=== PATIENT | male | born 1995 | race African-American/Black ===

== ENCOUNTER 2024-03-26 21:32 | Emergency (ER) | payer BC, SELFPAY ==
[2024-03-26 21:37] VITALS: BP 170/90; PULSE 74; RESP 15; TEMP 36.8; O2SAT 100
--- NOTE | 2024-03-26 21:39 | ED.URI ---
HPI - URI/Sore Throat General Chief Complaint: Upper Respiratory Infection Stated Complaint: URI Time Seen by Provider: 03/26/24 21:39 Focused HPI: This is a 28 year old male that presents to the ER for cold symptoms present since this afternoon. Reports cough, congestion, sore throat. Denies fevers. GENERAL: Well-appearing, well-nourished, and in no acute distress. HEAD: Normocephalic, atraumatic. CHEST: Clear to auscultation. ?No respiratory distress. HEART: Regular rate and rhythm.? NEURO: ?Alert and oriented x3. Patient screened in triage and initial orders placed.? ?Additional care and disposition to be based upon?diagnostic testing and treatment. Review of Systems Review of Systems: CONSTITUTIONAL: Denies fever ENT: Reports congestion, sore throat RESPIRATORY: Reports cough GASTROINTESTINAL: Denies vomiting, or diarrhea. All systems reviewed & are unremarkable except as noted in HPI and below PMFSH Past Medical History Medical History (Updated 03/26/24 @ 23:31 by Ching Floyd PA-C) No active medical problems Social History Social History (Updated 03/26/24 @ 21:52 by Ching Floyd PA-C) Smoking status: Never smoker Exam Narrative: GENERAL: Well-appearing, well-nourished, and in no acute distress. HEAD: Normocephalic, atraumatic. EYES: EOMI. ENT: Nares clear, no rhinorrhea or epistaxis. Mucous membranes moist. Oropharynx without tonsillar hypertrophy exudate or other lesions. Bilateral TMs pearly valladares non-bulging NECK: Supple. No adenopathy or masses. CHEST: Clear to auscultation. No respiratory distress. No wheezes rales or rhonchi HEART: Regular rate and rhythm. No murmur heard. Normal peripheral pulses. EXTREMITIES: Normal range of motion. No edema. SKIN: Warm, dry, no rash. NEURO: No focal deficits. Alert and oriented x3. PSYCH: Normal mood and affect Course Course Emergency Course: Patient updated on his workup and agrees with plan of care Vital Signs Vital signs: Vital Signs Temperature 98.2 F 03/26/24 21:37 Pulse Rate 74 03/26/24 21:37 Respiratory Rate 15 03/26/24 21:37 Blood Pressure 170/90 H 03/26/24 21:37 Pulse Oximetry 100 03/26/24 21:37 Oxygen Delivery Room Air 03/26/24 21:37 Temperature 98.2 F 03/26/24 21:37 Pulse Rate 74 03/26/24 21:37 Respiratory Rate 15 03/26/24 21:37 Blood Pressure 170/90 H 03/26/24 21:37 Pulse Oximetry 100 03/26/24 21:37 Oxygen Delivery Room Air 03/26/24 21:37 MDM - URI/Sore Throat MDM Narrative Medical decision making narrative: Patient presents to the emergency department for cold symptoms present since this afternoon. He is afebrile and nontoxic appearing. Lungs are clear on exam. Oxygen saturation is normal on room air. Patient positive for COVID. He was instructed on continued symptomatic care a viral infection. He is to follow up with primary provider. He was given warnings to return to the ER Patient's blood pressure incidentally elevated. He is asymptomatic. Instructed to continue to monitor this and follow up with primary for this as well Differential Diagnosis Differential diagnosis: Likely upper respiratory infection, viral infection, bronchitis, influenza, pharyngitis and other (COVID) Lab Data Attestation: I reviewed the patient's lab results. Labs: Lab Results 03/26/24 Range/Units 21:43 Influenza A (RT-PCR) Negative (Negative) Influenza B (RT-PCR) Negative (Negative) RSV (RT-PCR) Negative (Negative) SARS-CoV-2 RNA (RT-PCR) Positive A (Negative) Group A Strep (PCR) Not detected (Negative) Critical Care Time Critical Care Time Critical Care Time: No Discharge Plan Discharge Clinical Impression: COVID-19 Patient Disposition: Home, Self-Care Condition: Stable Instructions: COVID-19 (Coronavirus Disease 2019) (ED), How to Recover from COVID-19 at Home (ED) Additional Instructions: Return to the emergency department for worsenin
[2024-03-26 22:14] LABS: Strep Group A RT-PCR NOT DETECTED (Negative)
[2024-03-26 23:21] LABS: Influenza A QL RT-PCR Negative (Negative); Influenza B QL RT-PCR Negative (Negative); RSV RNA, RT-PCR Negative (Negative); SARS-CoV-2 RNA PCR Positive (Negative)
[2024-03-26 23:41] VITALS: BP 149/107; PULSE 76; RESP 18; TEMP 37.3; O2SAT 99
== END 2024-03-27 00:08 | disposition home or self-care (01) ==
PROVIDERS: Emergency Medicine; Emergency Provider Physician Assistant
DX: U07.1 COVID-19 (principal)
CPT/HCPCS: 87637; 87651; 99283

== ENCOUNTER 2024-12-05 21:32 | Emergency (ER) | payer BC, SELFPAY ==
--- NOTE | ~2024-12-05 | CT_ITS ---
CT of the Abdomen and Pelvis: Indication: Abdominal pain Technique: 2.5 mm axial scans were obtained through the abdomen and pelvis following intravenous adm inistration of 100 cc of Omnipaque 350. Dose reduction technique was used on this scan by utilizing a utomated exposure control and iterative reconstruction technique. The dose-length product (DLP) was 1 205.37 mGy-cm. Findings: Scans through the lung bases are unremarkable. The liver, spleen, pancreas, gallbladder, adrenals and kidneys are within normal limits. No evidence of aortic aneurysm. No lymphadenopathy. No bowel obstruction or bowel wall thickening. There is focal epiploic appendagitis at the proximal s igmoid colon.. Images through the pelvis were performed. Urinary bladder unremarkable. No pelvic mass seen. No ascit es. Impression: Epiploic appendagitis at the proximal sigmoid colon. Reviewed, dictated and finalized at [facility]. Impression: Epiploic appendagitis at the proximal sigmoid colon.
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
--- OUTSIDE RECORDS SUMMARY | 2024-12-05 21:34 | XMS_ITS | Referral Summary ---
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 Gender Identity Not on file Sexual Orientation Not on file Last Filed Vital Signs Vital Sign Reading Time Taken Comments Blood Pressure 144/102 06/21/2024 10:30 AM METAL MOLD DRESSER Pulse 73 06/21/2024 10:30 AM METAL MOLD DRESSER Temperature 36.9 C (98.4 F) 06/21/2024 10:30 AM METAL MOLD DRESSER Respiratory Rate 16 09/08/2022 9:32 AM METAL MOLD DRESSER Oxygen Saturation 99% 06/21/2024 10: 30 AM METAL MOLD DRESSER Inhaled Oxygen Concentration - - Weight 120.2 kg (265 lb 1.6 oz) 024 10:30 AM METAL MOLD DRESSER Height 182.9 cm (6') 06/21/2024 10:30 AM METAL MOLD DRESSER Body Mass Index 35.95 06/21/2024 10:30 AM METAL MOLD DRESSER Plan of Treatment Not on file Insurance [employer] [place] [employer] [place] Care Teams Internet Systems Administrator Relationship Specialty Start Date End Date Toan Roper MD PCP - General 07/22/19
--- OUTSIDE RECORDS SUMMARY | 2024-12-05 21:34 | XMS_ITS | Clinical Summary ---
Author Organization [facility] [employer] Address [address] [place] [address] Care Team Providers Care Cash Processing Specialist Name Role Phone Unavailable Primary Care Provider Unavailabl e Source Comments [facility] [employer],non-owned Affiliates and Associated Physician Practices is amultiple site organization consisting of ambulatory clinics and hospital sitesin [place], [place], [place] and [place]. This disclosure is being madepursuant to the Care Everywhere program and may not contain all information available regarding this patient. Last updated 18.[employer] Allergies No known active allergies Medications * Be aware that medications may not be up to date on this document. Alwaysverify current medications with the patient. aminocaproic acid (AMICAR) 25 % solutionIndicat ions:Von Willebrand's disease (HCC) Take 8 mL by mouth every 8 hours. As needed for oral bleeding 240 mL 0 5 Active Additional Information Patient not taking.Reported on 03/06/2021 tranexamic acid (LYSTEDA) 650 MG tabletIndicatio ns:Von Willebrand's disease (HCC) Take 2 Tabs by mouth as directed. Take every 8 hours prn mouth bleeding not to exceed 7 days in a row. 30 Tab 0 5 Active Additional Information Patient not taking.Reported on 03/06/2021 STIMATE 1.5 MG/MLIndication s:Von Willebrand's disease (HCC) 1 squirt into each nostril every 24 hours as needed for bleeding. Not to exceed 3 consecutive daily doses. 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 Gender Identity Not on file Sexual Orientation Not on file Last Filed Vital Signs Vital Sign Reading Time Taken Comments Blood Pressure 124/69 03/06/2021 11:56 AM CDT Pulse 63 03/06/2021 11:56 AM CDT Temperature 36.8 C (98.3 F) 03/06/2021 11:56 AM CDT Respiratory Rate 16 03/06/2021 11:56 AM CDT Oxygen Saturation 100% 03/06/2021 11:56 AM CDT Inhaled Oxygen Concentration - - Weight 104.3 kg (230 lb) 03/06/2021 11:56 AM CDT Height 185.4 cm (6' 1 ) 03/06/2021 11:56 AM CDT Body Mass Index 30.34 03/06/2021 11:56 AM CDT Plan of Treatment Health Maintenance Due Date Last Done Comments HIV SCREENING 2011 HEPATITIS C SCREENING 06/05/2014 DTAP/TDAP/TD VACCINES (1 - Tdap) 2015 HEPATITIS B VACCINE (1 of 3 - 19+ 3-dose series) 2015 COVID-19 VACCINE ( - 2023-2 5 season) 2024 DEPRESSION SCREENING 08/02/2024 INFLUENZA VACCINE (Season Ended) 2025 ZOSTER VACCINE (1 of 2) 2046 HIB VACCINE Aged Out No longer eligi ble based on patient's age to complete this topic HPV VACCINE Aged Out No longer eligi ble based on patient's age to complete this topic MENINGOCOCCAL (Group B) VACC INE SHARED DECISION-MAKING Aged Out No longer eligibl e based on patient's age to complete this topic MENINGOCOCCAL GROUPS A/C/Y/W VACCINE Aged Out No longer eligible b ased on patient's age to complete this topic PNEUMOCOCCAL VACCINE Aged Out No long er eligible based on patient's age to complete this topic [facility] [place] [facility] [place]
[2024-12-05 21:47] VITALS: BP 153/109; PULSE 62; RESP 15; TEMP 35.8; O2SAT 98
[2024-12-05 22:17] LABS: Bacteria Urine None Seen /hpf; Non Pathogenic Casts 0-2; RBC Urine 0-2 /hpf (0-2); Squamous Epithelial Cell Urine None Seen /hpf (Few); WBC Urine 0-5 /hpf (0-3)
[2024-12-05 22:29] LABS: Add Urine Microscopic? NO; Appearance Urine Clear (Clear); Bilirubin Urine Negative (Negative); Blood Urine Negative (Negative); Color Urine Yellow (Yellow); Glucose Urine UA Negative (Negative); Ketones Urine Negative (Negative); Leukocyte Esterase Ur Negative LEU/UL (Negative); Nitrate Urine Negative (Negative); Protein Urine Negative (Negative); Urobilinogen Urine 0.2 mg/dL (<2.0)
--- OUTSIDE RECORDS SUMMARY | 2024-12-05 22:48 | XMS_ITS | Referral Summary ---
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 Gender Identity Not on file Sexual Orientation Not on file Last Filed Vital Signs Vital Sign Reading Time Taken Comments Blood Pressure 144/102 06/21/2024 10:30 AM DOOR MACHINE OPERATOR Pulse 73 06/21/2024 10:30 AM DOOR MACHINE OPERATOR Temperature 36.9 C (98.4 F) 06/21/2024 10:30 AM DOOR MACHINE OPERATOR Respiratory Rate 16 09/08/2022 9:32 AM DOOR MACHINE OPERATOR Oxygen Saturation 99% 06/21/2024 10: 30 AM DOOR MACHINE OPERATOR Inhaled Oxygen Concentration - - Weight 120.2 kg (265 lb 1.6 oz) 024 10:30 AM DOOR MACHINE OPERATOR Height 182.9 cm (6') 06/21/2024 10:30 AM DOOR MACHINE OPERATOR Body Mass Index 35.95 06/21/2024 10:30 AM DOOR MACHINE OPERATOR Plan of Treatment Not on file Insurance [employer] [place] [employer] [place] Care Teams Ticket Attendant Relationship Specialty Start Date End Date Toan Roper MD PCP - General 07/22/19
--- OUTSIDE RECORDS SUMMARY | 2024-12-05 22:48 | XMS_ITS | Clinical Summary ---
Author Organization [facility] [employer] Address [address] [place] [address] Care Team Providers Care Upholstery Mechanic Name Role Phone Unavailable Primary Care Provider Unavailabl e Source Comments [facility] [employer],non-owned Affiliates and Associated Physician Practices is amultiple site organization consisting of ambulatory clinics and hospital sitesin [place], [place], [place] and [place]. This disclosure is being madepursuant to the Care Everywhere program and may not contain all information available regarding this patient. 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
--- OUTSIDE RECORDS SUMMARY | 2024-12-05 22:48 | XMS_ITS | Clinical Summary ---
Author Organization [facility] Address [address] [place] [address] Care Team Providers Care Facepiece Line Supervisor Name Role Phone Toan Roper MD Primary Care Provider [phone] Allergies Active Allergy Reactions Criticality Noted Date [...] on file Legal Sex Male 6:20 PM TERRA COTTA ROOFER HELPER Gender Identity Not on file Sexual Orientation Not on file Obstetrics History Last Filed Vital Signs Vital Sign Reading Time Taken Comments Blood Pressure 144/102 06/21/2024 10:30 AM TERRA COTTA ROOFER HELPER Pulse 73 06/21/2024 10:30 AM TERRA COTTA ROOFER HELPER Temperature 36.9 C (98.4 F) 06/21/2024 10:30 AM TERRA COTTA ROOFER HELPER Respiratory Rate 16 09/08/2022 9:32 AM TERRA COTTA ROOFER HELPER Oxygen Saturation 99% 06/21/2024 10: 30 AM TERRA COTTA ROOFER HELPER Inhaled Oxygen Concentration - - Weight 120.2 kg (265 lb 1.6 oz) 024 10:30 AM TERRA COTTA ROOFER HELPER Height 182.9 cm (6') 06/21/2024 10:30 AM TERRA COTTA ROOFER HELPER Body Mass Index 35.95 06/21/2024 10:30 AM TERRA COTTA ROOFER HELPER Plan of Treatment Health Maintenance Due Date [...] patient's age to complete this topic Insurance [facility] [place] Care Teams Facepiece Line Supervisor Relationship Specialty Start Date End Date Toan Roper MD PCP - General 07/22/19
--- NOTE | 2024-12-05 23:08 | PC.NURSE ---
Received report from RAMON Sharpe for cont. of care. Pt presents to ED c/o 5/10 abdominal pain when urinating, denies discharge or blood in urine. IV inserted at this time.
[2024-12-05 23:18] VITALS: BP 156/87; PULSE 64; RESP 14; O2SAT 100
--- NOTE | 2024-12-05 23:22 | ED.ABDPAIN ---
HPI - Abdominal Pain General Chief Complaint: Urogenital-Male <Cally Dyer PA-C - Last Filed: 12/06/24 03:00> Stated Complaint: Pressure feeling while urinating-left side only <Cally Dyer PA-C - Last Filed: 12/06/24 03:00> Time Seen by Provider: 12/05/24 22:38 <Cally Dyer PA-C - Last Filed: 12/06/24 03:00> History of Present Illness HPI narrative: 29-year-old male presents emergency department for left lower quadrant abdominal pain for the past 3 days. Patient describes the pain as a pressure sensation, worse with urination. He has not noticed any bulges at. Denies dysuria, hematuria, penile discharge, flank pain, pain to his scrotum or testicles, fever, nausea or vomiting, diarrhea. Last bowel movement was yesterday and normal. No prior abdominal surgeries. <Cally Dyer PA-C - Last Filed: 12/06/24 03:00> Related Data Allergies/Adverse Reactions: Allergies Allergy/AdvReac Type Severity Reaction Status Date / Time aspirin AdvReac Intermediate Bleeding Verified 12/05/24 21:34 <Cally Dyer PA-C - Last Filed: 12/06/24 03:00> Review of Systems Review of Systems: All systems reviewed & are unremarkable except as noted in HPI and below <Cally Dyer PA-C - Last Filed: 12/06/24 03:00> PMFSH Past Medical History Medical History: Medical History No active medical problems <Cally Dyer PA-C - Last Filed: 12/06/24 03:00> Social History Social History: Social History Smoking status: Never smoker <Cally Dyer PA-C - Last Filed: 12/06/24 03:00> Exam Narrative: GENERAL: Well-appearing, well-nourished, and in no acute distress. HEAD: Normocephalic, atraumatic. EYES: EOMI. ENT: Nares clear, no rhinorrhea or epistaxis. Mucous membranes moist. NECK: Supple. CHEST: Clear to auscultation. No respiratory distress. HEART: Regular rate and rhythm. No murmur heard. Normal peripheral pulses. ABDOMEN: Normoactive bowel sounds. Abdomen soft with tenderness in the left lower quadrant. No rebound or rigidity. No CVA tenderness. EXTREMITIES: Normal range of motion. No edema. SKIN: Warm, dry, no rash. NEURO: No focal deficits. Alert and oriented x3 <Cally Dyer PA-C - Last Filed: 12/06/24 03:00> Course RADIATION THERAPIST/PA Physician Supervision I agree with midlevel documentation; I performed the medical decision making component of this evaluation. <Laury Pringle MD - Last Filed: 12/06/24 03:39> Vital Signs Vital signs: Vital Signs Temperature 96.5 F L 12/05/24 21:47 Pulse Rate 62 12/05/24 21:47 Respiratory Rate 15 12/05/24 21:47 Blood Pressure 153/109 H 12/05/24 21:47 Pulse Oximetry 98 12/05/24 21:47 Oxygen Delivery Room Air 12/05/24 21:47 Temperature 96.5 F L 12/05/24 21:47 Pulse Rate 64 12/05/24 23:18 Respiratory Rate 14 12/05/24 23:18 Blood Pressure 156/87 H 12/05/24 23:18 Pulse Oximetry 100 12/05/24 23:18 Oxygen Delivery Room Air 12/05/24 21:47 <Cally Dyer PA-C - Last Filed: 12/06/24 03:00> Vital Signs Temperature 96.5 F L 12/05/24 21:47 Pulse Rate 62 12/05/24 21:47 Respiratory Rate 15 12/05/24 21:47 Blood Pressure 153/109 H 12/05/24 21:47 Pulse Oximetry 98 12/05/24 21:47 Oxygen Delivery Room Air 12/05/24 21:47 Temperature 96.5 F L 12/05/24 21:47 Pulse Rate 64 12/05/24 23:18 Respiratory Rate 14 12/05/24 23:18 Blood Pressure 156/87 H 12/05/24 23:18 Pulse Oximetry 100 12/05/24 23:18 Oxygen Delivery Room Air 12/05/24 21:47 <Laury Pringle MD - Last Filed: 12/06/24 03:39> MDM - Abdominal Pain MDM Narrative Medical decision making narrative: 29-year-old male with no past medical history presents to the emergency department for left lower quadrant abdominal pain for 3 days. Worse with urination. Vital signs with hypertension, otherwise unremarkable. Patient is afebrile and nontoxic appearing. Patient resting comfortably in exam bed. Exam is notable for mild tenderness to the left lower quadrant with no rebound, guarding or rigidity. CBC without leukocytosis. Hemoglobin slightly low at 12.9, no prior for comparison. Chemistries are unremarkable. UA is unremarkable. Gonorrhea chlamydia negative. Lipase within normal limits. CT abdomen pelvis read by stat read shows a normal appendix, bowel loops are nondilated, there is subtle area of fat stranding consistent with inflammation centered on the proximal sigmoid colon. Consider epiploic appendagitis, less likely diverticulitis or colitis. Remainder of exam is unremarkable. Patient updated on results. He is resting comfortably in exam bed. Will start him on NSAIDs for epiploic appendagitis. Discussed follow-up with PCP and strict ED return precautions. He is agreeable with the plan verbalized understanding. Discharged in stable condition. <Cally Dyer PA-C - Last Filed: 12/06/24 03:00> Lab Data Result diagrams: 12/05/24 23:17 12/05/24 23:17 <Cally Dyer PA-C - Last Filed: 12/06/24 03:00> Labs: Lab Results 12/05/24 12/05/24 Range/Units 22:00 23:17 WBC 7.1 (4.5-10.0) K/mm3 RBC 4.51 L (4.6-6.20) M/mm3 Hgb 12.9 L (14.0-18.0) g/dL Hct 39.7 L (42.0-52.0) % MCV 88.0 (80-100) fl MCH 28.6 (26-34) pg MCHC 32.5 (32-36) g/dl RDW 13.8 (11.5-14.5) % Plt Count 191 (150-375) k/mm3 MPV 10.8 H (7.4-10.4) fl Immature Gran % (Auto) 0.1 (0-0.5) % Neut % (Auto) 56.3 (45.5-73.1) % Lymph % (Auto) 33.3 (18.3-44.2) % [place] % (Auto) 9.0 H (2.6-8.5) % Eos % (Auto) 1.0 (0-4.4) % Baso % (Auto) 0.3 (0.2-1.2) % Lymph # (Auto) 2.36 (0.9-3.2) K/mm3 [place] # (Auto) 0.6 (0.1-0.6) K/mm3 Eos # (Auto) 0.1 (0-0.3) K/mm3 Baso # (Auto) 0.0 (0.0-0.1) K/mm3 Abs Immat Gran (auto) 0.01 (0.00-0.031) K/mm3 Absolute Neuts (auto) 4.0 (1.3-6.7) K/mm3 Absolute Nucleated RBC 0.000 (0.0-0.012) K/mm3 Nucleated RBC % 0.0 (0.0-0.2) % Sodium 137 (137-145) mmol/L Potassium 4.3 (3.4-5.0) mmol/L Chloride 102 (98-107) mmol/L Carbon Dioxide 26 (22-30) mmol/L Anion Gap 9 (4-12) mmol/L BUN 14 (9-20) mg/dL Creatinine 1.06 (0.7-1.3) mg/dL Estim Creat Clear Calc 121 ml/min Estimated GFR > 60 (59 - ) Glucose 86 (65-110) mg/dL Calcium 9.1 (8.4-10.2) mg/dL Total Bilirubin 0.6 (0.2-1.3) mg/dL AST 55 (17-59) U/L ALT 44 (6-50) U/L Alkaline Phosphatase 50 (38-126) U/L Total Protein 8.0 (6.3-8.2) g/dL Albumin 4.7 (3.5-5.1) g/dL Lipase 79 (23-300) U/L Urine Color Yellow (Yellow) Urine Appearance Clear (Clear) Urine pH 6.0 (5.0-9.0) Ur Specific [place] 1.020 (1.001-1.035) Urine Protein Negative (Negative) mg/dL Urine Glucose (UA) Negative (Negative) mg/dL Urine Ketones Negative (Negative) mg/dL Ur Blood (Man) Negative (Negative) Urine Nitrate Negative (Negative) Urine Bilirubin Negative (Negative) Urine Urobilinogen 0.2 (<2.0) mg/dL Leukocyte Esterase Rfl Negative (Negative) KASEY/UL Urine RBC 0-2 (0-2) /hpf Urine WBC 0-5 (0-3) /hpf Ur Squamous Epith Cells None seen (Few) /hpf Urine Bacteria None seen /hpf Urine Casts 0-2 C. trachomatis (PCR) Not detected (NOT DETECTE) N. gonorrhoeae (PCR) Not detected (NOT DETECTE) <Cally Dyer PA-C - Last Filed: 12/06/24 03:00> Lab Results 12/05/24 12/05/24 Range/Units 22:00 23:17 WBC 7.1 (4.5-10.0) K/mm3 RBC 4.51 L (4.6-6.20) M/mm3 Hgb 12.9 L (14.0-18.0) g/dL Hct 39.7 L (42.0-52.0) % MCV 88.0 (80-100) fl MCH 28.6 (26-34) pg MCHC 32.5 (32-36) g/dl RDW 13.8 (11.5-14.5) % Plt Count 191 (150-375) k/mm3 MPV 10.8 H (7.4-10.4) fl Immature Gran % (Auto) 0.1 (0-0.5) % Neut % (Auto) 56.3 (45.5-73.1) % Lymph % (Auto) 33.3 (18.3-44.2) % [place] % (Auto) 9.0 H (2.6-8.5) % Eos % (Auto) 1.0 (0-4.4) % Baso % (Auto) 0.3 (0.2-1.2) % Lymph # (Auto) 2.36 (0.9-3.2) K/mm3 [place] # (Auto) 0.6 (0.1-0.6) K/mm3 Eos # (Auto) 0.1 (0-0.3) K/mm3 Baso # (Auto) 0.0 (0.0-0.1) K/mm3 Abs Immat Gran (auto) 0.01 (0.00-0.031) K/mm3 Absolute Neuts (auto) 4.0 (1.3-6.7) K/mm3 Absolute Nucleated RBC 0.000 (0.0-0.012) K/mm3 Nucleated RBC % 0.0 (0.0-0.2) % Sodium 137 (137-145) mmol/L Potassium 4.3 (3.4-5.0) mmol/L Chloride 102 (98-107) mmol/L Carbon Dioxide 26 (22-30) mmol/L Anion Gap 9 (4-12) mmol/L BUN 14 (9-20) mg/dL Creatinine 1.06 (0.7-1.3) mg/dL Estim Creat Clear Calc 121 ml/min Estimated GFR > 60 (59 - ) Glucose 86 (65-110) mg/dL Calcium 9.1 (8.4-10.2) mg/dL Total Bilirubin 0.6 (0.2-1.3) mg/dL AST 55 (17-59) U/L ALT 44 (6-50) U/L Alkaline Phosphatase 50 (38-126) U/L Total Protein 8.0 (6.3-8.2) g/dL Albumin 4.7 (3.5-5.1) g/dL Lipase 79 (23-300) U/L Urine Color Yellow (Yellow) Urine Appearance Clear (Clear) Urine pH 6.0 (5.0-9.0) Ur Specific [place] 1.020 (1.001-1.035) Urine Protein Negative (Negative) mg/dL Urine Glucose (UA) Negative (Negative) mg/dL Urine Ketones Negative (Negative) mg/dL Ur Blood (Man) Negative (Negative) Urine Nitrate Negative (Negative) Urine Bilirubin Negative (Negative) Urine Urobilinogen 0.2 (<2.0) mg/dL Leukocyte Esterase Rfl Negative (Negative) KASEY/UL Urine RBC 0-2 (0-2) /hpf Urine WBC 0-5 (0-3) /hpf Ur Squamous Epith Cells None seen (Few) /hpf Urine Bacteria None seen /hpf Urine Casts 0-2 C. trachomatis (PCR) Not detected (NOT DETECTE) N. gonorrhoeae (PCR) Not detected (NOT DETECTE) <Laury Pringle MD - Last Filed: 12/06/24 03:39> Discharge Plan Discharge Clinical Impression: Epiploic appendagitis Anemia Qualifiers: Anemia type: unspecified type Qualified Code(s): D64.9 - Anemia, unspecified <Cally Dyer PA-C - Last Filed: 12/06/24 03:00> Patient Disposition: Home <Cally Dyer PA-C - Last Filed: 12/06/24 03:00> Condition: Stable <Cally Dyer PA-C - Last Filed: 12/06/24 03:00> Instructions: Antibiotic Form, Abdominal Pain (ED) <Cally Dyer PA-C - Last Filed: 12/06/24 03:00> Additional Instructions: Your evaluated in the emergency department for abdominal pain. Your found have small area of inflammation of the left lower quadrant of her abdomen consistent with epiploic appendagitis as discussed. Please take anti-inflammatories as directed follow-up with your primary care provider. Return to the emergency department if you develop any new or worsening symptoms. <Cally Dyer PA-C - Last Filed: 12/06/24 03:00> Patient Language: Telugu <Cally Dyer PA-C - Last Filed: 12/06/24 03:00> Prescriptions: New naproxen 500 mg tablet 500 mg PO BID PRN (Reason: pain) Qty: 20 0RF <Cally Dyer PA-C - Last Filed: 12/06/24 03:00> Follow-up/Referrals: UNKNOWN,DOCTOR [Primary Care Provider] - <Cally Dyer PA-C - Last Filed: 12/06/24 03:00>
[2024-12-05 23:25] LABS: Basophils Percent Auto 0.3 % (0.2-1.2); Eosinophils Absolute Auto 0.1 K/mm3 (0-0.3); Hematocrit 39.7 % (42.0-52.0); Hemoglobin 12.9 g/dL (14.0-18.0); Immature Granulocyte Absolute 0.01 K/mm3 (0.00-0.031); Immature Granulocyte Percent A 0.1 % (0-0.5); Lymphocytes Absolute Auto 2.36 K/mm3 (0.9-3.2); Lymphocytes Percent Auto 33.3 % (18.3-44.2); Mean Corpuscular HGB Conc 32.5 g/dl (32-36); Mean Corpuscular Hemoglobin 28.6 pg (26-34); Mean Platelet Volume 10.8 fl (7.4-10.4); Monocytes Absolute Auto 0.6 K/mm3 (0.1-0.6); Neutrophils Percent Auto 56.3 % (45.5-73.1); Platelet Count Result 191 k/mm3 (150-375); Red Blood Count 4.51 M/mm3 (4.6-6.20); Red Cell Distribution Width 13.8 % (11.5-14.5); White Blood Count 7.1 K/mm3 (4.5-10.0)
[2024-12-05 23:42] LABS: Chlamydia trachomatis NOT DETECTED (NOT DETECTE); Neisseria gonorrhoeae PCR NOT DETECTED (NOT DETECTE)
[2024-12-05 23:43] LABS: Alanine Aminotransferase 44 U/L (6-50); Albumin Level 4.7 g/dL (3.5-5.1); Alkaline Phosphatase 50 U/L (38-126); Anion Gap 9 mmol/L (4-12); Aspartate Amino Transferase 55 U/L (17-59); Bilirubin,Total 0.6 mg/dL (0.2-1.3); Blood Urea Nitrogen 14 mg/dL (9-20); Calcium 9.1 mg/dL (8.4-10.2); Carbon Dioxide 26 mmol/L (22-30); Chloride 102 mmol/L (98-107); Estimated CRCL calculation 121 ml/min; Estimated Glomerular Filt Rate > 60; Glucose 86 mg/dL (65-110); Lipase 79 U/L (23-300); Potassium 4.3 mmol/L (3.4-5.0); Sodium 137 mmol/L (137-145)
== END 2024-12-06 03:39 | disposition home or self-care (01) ==
PROVIDERS: Emergency Medicine; Emergency Provider Physician Assistant
DX: D64.9 Anemia, unspecified (principal); Q43.8 Other specified congenital malformations of intestine
CPT/HCPCS: 36415; 74177; 80053; 81003; 83690; 85025; 87491; 87591; 96374; 99284; Q9967

== ENCOUNTER 2025-01-16 10:34 | Emergency (ER) | payer BC, SELFPAY ==
--- NOTE | 2025-01-16 10:37 | ED_ITS ---
HPI - URI/Sore Throat General Chief Complaint: Upper Respiratory Infection Stated Complaint: Sinus Infection Symptoms Source: patient and RN notes reviewed Mode of arrival: ambulatory Limitations: no limitations History of Present Illness HPI Narrative: Patient is a 29-year-old male who presents to the [facility] with multiple complaints. Patient has complaints of congestion and sore throat that started on Wednesday. He states that he developed an infrequent nonproductive cough for over the weekend. He denies chest pain or shortness of breath. States that he has experienced generalized body aches. He is unsure of known fever. Patient states that yesterday he started having right ear pain. He denies ear drainage. Denies decreased hearing. His respirations are unlabored. He is unsure of any known sick contacts. Related Data Home Medications ?Medication ?Instructions ?Recorded ?Confirmed ?Last Taken ?Type No Home Medications 01/16/25 01/16/25 Unknown History Allergies Allergy/AdvReac Type Severity Reaction Status Date / Time aspirin AdvReac Intermediate Bleeding Verified 01/16/25 10:38 Review of Systems Review of Systems: CONSTITUTIONAL: Denies fever, chills, or sweats. EYES: Denies visual changes, redness, or discharge. ENT: Reports otalgia and sore throat and congestion CARDIOVASCULAR: Denies chest pain, palpitations, or edema. RESPIRATORY: reports cough but denies dyspnea. GASTROINTESTINAL: Denies abdominal pain, nausea, vomiting, or diarrhea. GENITOURINARY: Denies dysuria or hematuria. SKIN: Denies rash or itching. MUSCULOSKELETAL: Denies back pain and joint pain, but reports myalgia. NEUROLOGIC: Denies headache, numbness, or weakness. Pertinent positives per HPI. PMFSH Past Medical History Medical History No active medical problems Social History Social History Smoking status: Never smoker Comments At the time of my signature, I reviewed and agree with the nursing past medical, surgical, social, and family history. There is no relevant family history pertinent to the patient complaint. Exam Narrative: GENERAL: This is a well-nourished, well-developed patient, in no apparent distress. HEAD: normocephalic, atraumatic. EYES: Sclera clear/white. Vision is grossly intact. EARS: External ears normal, auditory canals clear and without drainage, left TM normal without perforation; right TM erythematous. Hearing grossly intact. NOSE: External nose normal with no obvious nasal discharge, nares without redness, no rhinorrhea. THROAT: Mucous membranes moist, posterior pharynx clear. NECK: Neck supple, non-tender without lymphadenopathy, masses or thyromegaly. CARDIOVASCULAR: Regular rate and rhythm without murmurs, gallops, or rubs. RESPIRATORY: Clear to auscultation. Breath sounds equal bilaterally. No wheezes, rales, or rhonchi. GASTROINTESTINAL: Abdomen soft, non-tender, nondistended. Bowel sounds are active. No hepato-splenomegaly, or palpable masses. No guarding. SKIN: warm, intact with no suspicious lesions or rash, good texture and turgor. NEURO: awake, alert, and oriented to person, place and time. There were no obvious focal neurologic abnormalities. Course Course Level of Care: Express Care Visit Vital Signs Vital signs: Vital Signs Temperature 99.3 F 01/16/25 10:40 Pulse Rate 68 01/16/25 10:40 Respiratory Rate 16 01/16/25 10:40 Blood Pressure 145/97 H 01/16/25 10:40 Pulse Oximetry 100 01/16/25 10:40 Oxygen Delivery Room Air 01/16/25 10:40 Temperature 99.3 F 01/16/25 10:40 Pulse Rate 68 01/16/25 10:40 Respiratory Rate 16 01/16/25 10:40 Blood Pressure 145/97 H 01/16/25 10:40 Pulse Oximetry 100 01/16/25 10:40 Oxygen Delivery Room Air 01/16/25 10:40 Reviewed MDM - URI/Sore Throat MDM Narrative Medical decision making narrative: Take antibiotics as directed. May given ibuprofen and/or Tylenol as needed for pain and/or fever. Follow up with primary care provider in 7-10 days to have ear rechecked. Go to the ER for any new or worsening symptoms. Avoid smoking/second-hand smoke. Continue to take Tylenol or Motrin for pain. Increase your Vitamin C intake. Use a humidifier or vaporizer at night. Take Medications as prescribed. Drink plenty of water. 8-10 glasses per day. Use flonase 2 times per day for 5 days then as needed Take mucinex 2 times per day and be sure to take with 8oz of water. Follow up with Primary provider if not getting better. Differential Diagnosis Differential diagnosis: Likely upper respiratory infection, otitis media, sinusitis, viral infection and pharyngitis Lab Data Attestation: I reviewed the patient's lab results. Critical Care Time Critical Care Time Critical Care Time: No Discharge Plan Discharge Clinical Impression: Acute right otitis media Patient Disposition: Home Condition: Stable Instructions: Antibiotic Form, Ear Infection (ED) Additional Instructions: Take antibiotics as directed. May given ibuprofen and/or Tylenol as needed for pain and/or fever. Follow up with primary care provider in 7-10 days to have ear rechecked. Go to the ER for any new or worsening symptoms. Avoid smoking/second-hand smoke. Continue to take Tylenol or Motrin for pain. Increase your Vitamin C intake. Use a humidifier or vaporizer at night. Take Medications as prescribed. Drink plenty of water. 8-10 glasses per day. Use flonase 2 times per day for 5 days then as needed Take mucinex 2 times per day and be sure to take with 8oz of water. Follow up with Primary provider if not getting better. Patient Language: Mohawk Prescriptions: New amoxicillin-pot clavulanate 875-125 mg tablet 1 tablet PO Q12H 10 Days Qty: 20 0RF fluticasone propionate [Flonase Allergy Relief] 50 mcg/actuation spray,suspension 1 spray intranasal BID Qty: 16 0RF Rx Instructions: administer into each nostril No Action No Home Medications Follow-up/Referrals: PHYSICIAN,GANG SAWYER [Primary Care Provider] - Stand Alone Forms: Work/School Release IP Time of Disposition: 10:51
[2025-01-16 10:40] VITALS: BP 145/97; PULSE 68; RESP 16; TEMP 37.4; O2SAT 100
== END 2025-01-16 10:51 | disposition home or self-care (01) ==
PROVIDERS: Emergency Provider Nurse Practitioner
DX: H66.92 Otitis media, unspecified, left ear (principal)
CPT/HCPCS: 99213; G0463

== ENCOUNTER 2025-03-05 09:08 | Emergency (ER) | payer BC, SELFPAY ==
[2025-03-05 09:25] VITALS: BP 115/74; PULSE 82; RESP 16; TEMP 36.6; O2SAT 98
--- NOTE | 2025-03-05 09:45 | ED.MALEGU ---
HPI - Male Genitourinary General Chief complaint: Urogenital-Male Stated complaint: Std Test Time Seen by Provider: 03/05/25 09:45 Source: patient, RN notes reviewed and old records reviewed Mode of arrival: ambulatory Limitations: no limitations History of Present Illness HPI Narrative: 29-year-old male presents to the [facility] with concerns for an STD. Patient reports that girlfriend tested positive for chlamydia Has had burning, discharge for 2-3 days. Related Data Allergies Allergy/AdvReac Type Severity Reaction Status Date / Time aspirin AdvReac Intermediate Bleeding Verified 03/05/25 09:26 Review of Systems Review of Systems: All systems reviewed & are unremarkable except as noted in HPI and below Constitutional: Constitutional: Reports no additional constitutional complaints Gastrointestinal: Gastrointestinal: Reports no additional gastrointestinal complaints Genitourinary: Genitourinary: Reports as per HPI, Reports dysuria, Denies painful ejaculations, Reports penile discharge, Denies scrotal swelling, Denies testicular mass and Denies testicular pain Musculoskeletal: Musculoskeletal: Reports no additional musculoskeletal complaints Integumentary/Breasts: Skin/Breast: Reports system reviewed and no additional complaints, except as docu PMFSH Past Medical History Medical History No active medical problems Social History Social History Smoking status: Never smoker Comments At the time of my signature, I reviewed and agree with the nursing past medical, surgical, social, and family history. There is no relevant family history pertinent to the patient complaint. Exam Const: General: cooperative, healthy appearing, comfortable, no acute distress, well developed, alert and well nourished Nutritional Appearance: well nourished Orientation/consciousness: patient oriented x3 Limitations: no limitations HENMT: Head: normal to inspection Eyes: General: appearance normal, both eyes and all related structures Alignment and Position: alignment normal Neck: Neck: normal visual inspection, full ROM, no lymphadenopathy and no meningeal signs Chest: Chest palpation & inspection: normal inspection of the chest Resp: Effort & Inspection: normal respiratory effort and able to speak in complete sentences Cardio: Rate: regular rate : General: Yes no CVA tenderness Male General Exam: No ecchymosis and No erythema Penis: Yes normal penis Meatus: meatal discharge Scrotum: scrotum normal, not edematous, not erythematous and no scrotal swelling Testes: Testes normal and no epidiymal tenderness Other: Chaperoned by Anitha NAVARRO Back/Spine/Pelvis: Back: No back tenderness Skin: General skin exam: normal color and no rashes or lesions noted Neuro: General: patient oriented x3, gait normal, moves all extremities and no meningeal signs Cognition (Neuro): normal cognition Speech: normal speech Gait exam (Neuro): Normal gait present Extrem: General: normal to inspection, full ROM, capillary refill normal and normal gait Psych: Appearance: grossly normal and well kempt Mental Status: mental status grossly normal Speech and movement: Normal speech and movement present and Clear speech present Affect: normal affect Attitude: cooperative Course Course Level of Care: Express Care Visit Vital Signs Vital signs: Vital Signs Temperature 97.9 F 03/05/25 09:25 Pulse Rate 82 03/05/25 09:25 Respiratory Rate 16 03/05/25 09:25 Blood Pressure 115/74 03/05/25 09:25 Pulse Oximetry 98 03/05/25 09:25 Oxygen Delivery Room Air 03/05/25 09:25 Temperature 97.9 F 03/05/25 09:25 Pulse Rate 82 03/05/25 09:25 Respiratory Rate 16 03/05/25 09:25 Blood Pressure 115/74 03/05/25 09:25 Pulse Oximetry 98 03/05/25 09:25 Oxygen Delivery Room Air 03/05/25 09:25 Reviewed MDM - Male Genitourinary MDM Narrative Medical decision making narrative: Patient sitting in exam room. Patient is nontoxic, vitals are stable. Patient presents with penile discharge times 2-3 days, positive exposure to chlamydia, will treat with doxycycline, sent testing for chlamydia, gonorrhea and Trichomonas. Encouraged patient to follow-up with primary care provider Patient appropriate for outpatient treatment with close follow-up Discharge instructions reviewed with patient, as well as provided in writing per nursing staff. The instructions also include specific and strict return/GO TO THE ER as well as f/u information. All questions have been answered, and the patient deny any further questions with discharge and discharge plan. Some parts of this dictation were generated by voice recognition software and may contain typographical and/or grammatical inaccuracies. Differential Diagnosis Differential diagnosis: Likely urinary tract infection, urethritis, epididymitis, genital herpes simplex, prostatitis, acute retention of urine and inguinal hernia Critical Care Time Critical Care Time Critical Care Time: No Discharge Plan Discharge Clinical Impression: Concern about STD in male without diagnosis, Exposure to chlamydia Patient Disposition: Home Condition: Stable Instructions: Antibiotic Form, Chlamydia (ED), Sexually Transmitted Diseases (ED), Safe Sex Practices (ED) Additional Instructions: Today you been tested for gonorrhea, chlamydia and Trichomonas. Results can take 3-4 days to return. You will be notified if you are positive. If you are positive it is recommended you follow-up with your primary care provider for further testing Take antibiotics as prescribed Absolutely no sex of any type for 2 weeks Worsening symptoms go directly to the emergency room Patient Language: Latvian Prescriptions: New doxycycline monohydrate 100 mg tablet 100 mg PO BID Qty: 14 0RF Follow-up/Referrals: Jacquelin,Toan Ivy MD [Primary Care Provider] - 2 Weeks Stand Alone Forms: Work/School Release IP Time of Disposition: 09:54
[2025-03-05 09:52] LABS: EDUAAPPEAR Clear; EDUABILI Negative (Negative); EDUABLOOD Negative (Negative); EDUACOLOR1 Yellow; EDUAGLUCOSE Negative (Negative); EDUAKETONE Negative (Negative); EDUALEUKO Negative (Negative); EDUANITRATE Negative (Negative); EDUAPH 6.0; EDUAPROTEIN Trace (Negative); EDUASPGRAVITY 1.030; EDUAUROBILI 0.2
[2025-03-05 20:07] LABS: Trichomonas Vag PCR NOT DETECTED (NOT DETECTE)
== END 2025-03-05 09:59 | disposition home or self-care (01) ==
PROVIDERS: Emergency Provider Nurse Practitioner; PCP Family Medicine
DX: Z20.2 Contact with and (suspected) exposure to infections with a predominantly sexual mode of transmission (principal)
CPT/HCPCS: 81003; 87491; 87591; 87661; 99213; G0463

== ENCOUNTER 2025-05-01 10:14 | Emergency (ER) | payer BC, SELFPAY ==
--- NOTE | ~2025-05-01 | XR_ITS ---
EXAMINATION: XR foot LT min 3V DATE: 05/01/2025 10:37 INDICATION: Heel pain. Ran on road barefoot TECHNIQUE: 4 images of the left foot were obtained. COMPARISON: None. FINDINGS: Small posterior calcaneal spur. [ No radiographic evidence for an acute fracture or dislocation.] [ No radiopaque foreign body.] [ No sclerotic or destructive bone lesions.] Soft tissue swelling about the left foot. IMPRESSION: 1. [ No acute bony abnormality identified.] If symptoms persist or worsen consider a short-term follow-up study or additional imaging for further assessment. Reviewed, dictated and finalized at location Q. IMPRESSION: 1. [ No acute bony abnormality identified.] If symptoms persist or worsen consider a short-term follow-up study or addition al imaging for further assessment.
--- NOTE | ~2025-05-01 | XR_ITS ---
EXAMINATION: XR foot RT min 3V DATE: 05/01/2025 10:37 INDICATION: Right heel pain in great toe pain. Puncture wound. TECHNIQUE: Dorsoplantar, two oblique and lateral views of the right foot were obtained. COMPARISON: None. FINDINGS: Alignment is normal. No fracture. 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 No ankle joint effusion. Small Achilles calcaneal spur. Soft tissues are unremarkable. No radiopaque foreign bodies. IMPRESSION: 1. No acute osseous abnormality or radiopaque foreign bodies. Reviewed, dictated and finalized at location A.
[2025-05-01 10:22] VITALS: BP 150/87; PULSE 61; RESP 16; TEMP 36.1; O2SAT 100
--- NOTE | 2025-05-01 10:26 | ED.EXTPRO ---
HPI - Extremity Problem General Chief complaint: Extremity Problem,Nontraumatic Stated complaint: Bilateral Foot Pain Time Seen by Provider: 05/01/25 10:15 Source: patient Mode of arrival: ambulatory Limitations: no limitations History of Present Illness HPI Narrative: Rigo is a 21-year-old male patient presenting to the clinic today with complaints of bilateral foot pain. He reports on Wednesday he ran on a road barefooted while running with his nieces. Received puncture wounds to bilateral heel and to the right great toe. Is having pain and swelling to the bottom of his feet mostly over the heel. Rates the pain 8/10 currently when walking. Has taken Tylenol for symptoms. Has noticed some bruising to the bottom of his feet. Related Data Home Medications ?Medication ?Instructions ?Recorded ?Confirmed ?Last Taken ?Type No Home Medications 05/01/25 05/01/25 Unknown History Allergies Allergy/AdvReac Type Severity Reaction Status Date / Time aspirin AdvReac Intermediate Bleeding Verified 05/01/25 10:25 Review of Systems Review of Systems: Pertinent positives per HPI. Patient denies any fever, chills, rash, headache, visual changes, dizziness, cough, runny nose, sore throat, shortness of breath, chest pain, palpitations, nausea, vomiting, diarrhea, constipation, abdominal pain, or any urinary issues. PMFSH Past Medical History Medical History No active medical problems Social History Social History Smoking status: Never smoker Comments At the time of my signature, I reviewed and agree with the nursing past medical, surgical, social, and family history. There is no relevant family history pertinent to the patient complaint. Exam Narrative: General: Well-developed, well nourished, in no apparent distress Head: Normocephalic, atraumatic. Cardio: Regular rate and rhythm, s1 and s2 normal, no murmur appreciated. Resp: Clear to auscultation bilaterally, no rhonchi, rales, wheezing or rubs. Musculoskeletal: No deformity, puncture wound to bilateral heels and the volar right great toe, tender to palpation over bilateral heels and over the volar aspect of the right great toe, grossly normal range of motion, muscle strength strong and equal, peripheral pulse strong, no edema, no cyanosis, normal gait and station Course Course Emergency Course: Portions of this record may have been created with voice recognition software. Level of Care: Express Care Visit Vital Signs Vital signs: Vital Signs Temperature 36.1 C L 05/01/25 10:22 Pulse Rate 61 05/01/25 10:22 Respiratory Rate 16 05/01/25 10:22 Blood Pressure 150/87 H 05/01/25 10:22 Pulse Oximetry 100 05/01/25 10:22 Oxygen Delivery Room Air 05/01/25 10:22 Temperature 36.1 C L 05/01/25 10:22 Pulse Rate 61 05/01/25 10:22 Respiratory Rate 16 05/01/25 10:22 Blood Pressure 150/87 H 05/01/25 10:22 Pulse Oximetry 100 05/01/25 10:22 Oxygen Delivery Room Air 05/01/25 10:22 Vital signs reviewed MDM - Extremity (Nontraumatic) MDM Narrative Medical decision making narrative: At the time of visit patient is resting comfortably on the exam table. Patient appears to be nontoxic. complaints of bilateral foot pain. He reports on Wednesday he ran on a road barefooted while running with his nieces. Received puncture wounds to bilateral heel and to the right great toe. Is having pain and swelling to the bottom of his feet mostly over the heel. Rates the pain 8/10 currently when walking. Tetanus greater than 5 years. Has taken Tylenol for symptoms. Has noticed some bruising to the bottom of his feet. On exam patient has puncture wound to bilateral heels and the volar right great toe, tender to palpation over bilateral heels and over the volar aspect of the right great toe, Tdap was ordered. Bilateral foot x-ray ordered Medications Tdap 0.5 mL IM given in the clinic today Diagnostics: X-rays of the feet are negative for any sign of fracture, malalignment, or foreign body. Plan: I suspect patient has puncture wounds, soft tissue swelling to the bilateral heels and right great toe. Recommend Tylenol and ibuprofen as needed for pain. Tetanus shot was updated in the clinic today. No sign of bacterial infection in the clinic today. Supportive measures were discussed with the patient and they voiced understanding discharge instructions and agrees to treatment plan. Return precautions reviewed Differential Diagnosis Differential diagnosis: Likely cellulitis and other (Foreign body in heel/toe, puncture wound, foot swelling due to soft tissue injury, calcaneal spurs) Imaging Data Radiologist's impression: ITS Impressions Foot X-Ray 05/01/25 10:39 IMPRESSION: 1. No acute osseous abnormality or radiopaque foreign bodies. Foot X-Ray 05/01/25 10:41 IMPRESSION: 1. [ No acute bony abnormality identified.] If symptoms persist or worsen consider a short-term follow-up study or additional imaging for further assessment. Discharge Plan Discharge Clinical Impression: Pain of both heels, Puncture wound Patient Disposition: Home Condition: Stable Instructions: Antibiotic Form, Puncture Wound in the Foot (ED) Additional Instructions: Tdap was updated in the clinic today No sign of obvious infection in the clinic today X-ray show no sign of fracture, malalignment, or foreign bodies in the skin May take Tylenol/ibuprofen as needed for pain and swelling May apply ice packs to the area to help alleviate pain and swelling Follow-up with your primary care doctor in 5-7 days if symptoms persist Patient Language: Syriac Prescriptions: No Action No Home Medications Follow-up/Referrals: Clari,Toan [Other] Stand Alone Forms: Work/School Release IP Time of Disposition: 10:51 Quality NIHSS Nursing Documentation ED NIHSS nursing documentation: reviewed/agree
[2025-05-01] MEDS: TETANUS,DIPHTHERIA,AC PERTUSSIS ADULT (0.5 ML) BOOSTRIX IM (10:42)
--- OUTSIDE RECORDS SUMMARY | 2025-05-01 11:00 | XMS_ITS | Clinical Summary ---
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 Gender Identity Not on file Sexual Orientation Not on file Obstetrics History Last Filed Vital Signs Vital Sign Reading Time Taken Comments Blood Pressure 144/102 06/21/2024 10:30 AM CLOTH BLEACHING RANGE OPERATOR CHIEF Pulse 73 06/21/2024 10:30 AM CLOTH BLEACHING RANGE OPERATOR CHIEF Temperature 36.9 C (98.4 F) 06/21/2024 10:30 AM CLOTH BLEACHING RANGE OPERATOR CHIEF Respiratory Rate 16 09/08/2022 9:32 AM CLOTH BLEACHING RANGE OPERATOR CHIEF Oxygen Saturation 99% 06/21/2024 10: 30 AM CLOTH BLEACHING RANGE OPERATOR CHIEF Inhaled Oxygen Concentration - - Weight 120.2 kg (265 lb 1.6 oz) 024 10:30 AM CLOTH BLEACHING RANGE OPERATOR CHIEF Height 182.9 cm (6') 06/21/2024 10:30 AM CLOTH BLEACHING RANGE OPERATOR CHIEF Body Mass Index 35.95 06/21/2024 10:30 AM CLOTH BLEACHING RANGE OPERATOR CHIEF Plan of Treatment Health Maintenance Due Date Last Done Comments Hepatitis C Screening 1996 DTaP/Tdap/Td Vaccine (1 - Tdap) 2007 Varicella Vaccines (1 of 2 - 13+ 2-dose series) 2009 Hepatitis B Screening 2014 Regular Well Visit/Exam 18-64 2014 HPV Vaccines (1 - 3-dose SCD M series) 2023 Influenza Vaccine (#1) 2025 Depression Screening 06/21/2025 06/21/2024 Pneumococcal vaccine <65 Aged Out No longer eligible based on patient's age to complete this topic Insurance [facility] [place] Care Teams Coin Machine Servicer Repairer Relationship Specialty Start Date End Date Toan Roper MD PCP - General 07/22/19
--- OUTSIDE RECORDS SUMMARY | 2025-05-01 11:04 | XMS_ITS | Clinical Summary ---
Author Organization [facility] [employer] Address [address] [place] [address] Care Team Providers Care Violin Mechanic Name Role Phone Unavailable Primary Care Provider Unavailabl e Source Comments [facility],non-owned Affiliates and Associated Physician Practices is amultiple site organization consisting of ambulatory clinics and hospital sitesin [place], [place], [place] and [place]. This disclosure is being madepursuant to the Care Everywhere program and may not contain all information available regarding this patient. 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 Gender Identity Not on file Sexual Orientation [...] 11:56 AM CDT Height 185.4 cm (6' 1) 03/06/2021 11:56 AM CDT Body Mass Index 30.34 03/06/2021 11:56 AM CDT Plan of Treatment Health Maintenance Due Date Last Done Comments HIV SCREENING 2011 HEPATITIS C SCREENING 06/05/2014 DTAP/TDAP/TD VACCINES (1 - Tdap) 2015 HEPATITIS B VACCINE (1 of 3 - 19+ 3-dose series) 2015 HPV VACCINE (1 - 3-dose SCDM series) 2023 DEPRESSION SCREENING 08/02/2024 COVID-19 VACCINE (1 - 2023-2 5 season) 2025 INFLUENZA VACCINE (#1) 2025 ZOSTER VACCINE (1 of 2) 2046 [...] patient's age to complete this topic Insurance [facility] MEDICAID - [place] [facility]
== END 2025-05-01 11:10 | disposition home or self-care (01) ==
PROVIDERS: Emergency Provider Nurse Practitioner Family
DX: M79.671 Pain in right foot (principal); M79.672 Pain in left foot; S91.332A Puncture wound without foreign body, left foot, initial encounter; S91.331A Puncture wound without foreign body, right foot, initial encounter; S91.131A Puncture wound without foreign body of right great toe without damage to nail, initial encounter; X58.XXXA Exposure to other specified factors, initial encounter; Z23 Encounter for immunization
CPT/HCPCS: 73630; 90471; 90715; 99214; G0463